=== PATIENT | male | born 1980 | race Caucasian/White ===

== ENCOUNTER 2017-06-10 11:34 | Emergency (ER) ==
[2017-06-10 11:40] VITALS: BP 127/85; TEMP 97.2; BMI 24.3
--- NOTE | 2017-06-10 11:54 | ED.PDOC ---
General ED Provider: Dr. MARY ELLEN GRAHAM JR Chief Complaint: Back Pain Stated Complaint: COMPLAINS OF BACK PAIN AND THINKS MAY BE A KIDNEY STONE[End] 97.2 89 16 98% 127/85 2/10 RIGHT SIDED FLANK PAIN[End]last episode April-not seen prior episode at [facility] [address] in [place], was told to stay hydrated Time Seen by Physician: 11:52 Mode of Arrival: Walk-In Information Source: Patient Exam Limitations: No limitations Nursing and Triage Documentation Reviewed and Agree: No Review of Systems - Review Of Systems Constitutional: Reports: No symptoms Eyes: Reports: No symptoms Ears, Nose, Mouth, Throat: Reports: No symptoms Respiratory: Reports: No symptoms Cardiac: Reports: No symptoms GI: Reports: No symptoms : Reports: Flank pain, Pain Musculoskeletal: Reports: No symptoms Skin: Reports: No symptoms Neurological: Reports: No symptoms Endocrine: Reports: No symptoms Hematologic/Lymphatic: Reports: No symptoms All Other Systems: Other Past Medical History - Past Medical History Previously Healthy: Yes Endocrine: Reports: None Cardiovascular: Reports: None Respiratory: Reports: None Hematological: Reports: None Gastrointestinal: Reports: None Genitourinary: Reports: Kidney stones (since 23 many stones no benefit nsaids has not sent stone for analysis has been carol to pass all stones) Neuro/Psych: Reports: Migraine Musculoskeletal: Reports: None Cancer: Reports: None - Surgical History General Surgical History: Reports: Other (wisdom teeth) - Family History Family History: Reports: None, Other (no known history kidney stones) - Social History Smoking Status: Former smoker Hx Substance Use: No Alcohol Screening: None - Immunizations Tetanus Shot up to Date: Yes Physical Exam - Physical Exam Appearance: Well-appearing, Thin Pain Distress: Mild Neck: Supple Respiratory: Airway patent Cardiovascular: RRR Musculoskeletal: Normal strength Skin: Warm Neurological: Sensation intact Psychiatric: Affect appropriate Critical Care Note - Critical Care Note Total Time (mins): 0 Course - Course Hematology/Chemistry: 06/10/17 11:59 06/10/17 11:59 Orders, Labs, Meds: Lab Review 06/10/17 06/10/17 11:45 11:59 WBC 13.65 H RBC 4.97 Hgb 16.5 Hct 46.2 MCV 93.0 MCH 33.2 H MCHC 35.7 H RDW Coeff of Jacky 11.9 Plt Count 239 Immature Gran % (Auto) 0.7 Neut % (Auto) 77.7 Lymph % (Auto) 13.7 [place] % (Auto) 3.7 Eos % (Auto) 3.8 Baso % (Auto) 0.4 Immature Gran # (Auto) 0.1 Neut # 10.6 H Lymph # 1.9 [place] # 0.5 Eos # 0.5 Baso # 0.1 Sodium 142 Potassium 4.1 Chloride 104 Carbon Dioxide 28 Anion Gap 14.1 BUN 16 Creatinine 0.93 Estimated GFR (MDRD) 91.00 BUN/Creatinine Ratio 17.20 Glucose 100 Calcium 9.5 Phosphorus 1.6 L Total Bilirubin 0.58 AST 24 ALT 43 Alkaline Phosphatase 112 Total Protein 7.6 Albumin 4.2 Globulin 3.4 Albumin/Globulin Ratio 1.24 Amylase 56 Lipase 30 Urine Color Dark Urine Clarity Turbid Urine pH 7.5 Ur Specific [place] 1.020 Urine Protein Trace Urine Glucose (UA) Negative Urine Ketones Negative Urine Blood 3+ Urine Nitrite Negative Urine Bilirubin Negative Urine Urobilinogen 1.0 Ur Leukocyte Esterase Negative Urine Microscopic RBC Tntc Urine Microscopic WBC 0-2 Ur Squamous Epith Cells 0-2 Orders Category Date Time Status ED IV/MEDIPORT/POWERPORT .ONCE EMERGENCY 06/10/17 11:48 Active Urine [ED STRAIN URINE] .ONCE EMERGENCY 06/10/17 11:58 Active AMYLASE Stat LAB 06/10/17 11:59 Completed CBC W/ AUTO DIFF Stat LAB 06/10/17 11:59 Completed COMPREHENSIVE METABOLIC PANEL Stat LAB 06/10/17 11:59 Completed LIPASE Stat LAB 06/10/17 11:59 Completed PHOSPHORUS Stat LAB 06/10/17 11:59 Completed URINALYSIS C & S IF INDICATED Stat LAB 06/10/17 11:45 Completed 0.9 % Sodium Chloride [Saline Flush] MEDS 06/10/17 11:48 Discontinued 1 syr IVF PRN PRN CT ABDOMEN/PELVIS WO CONTRAST Stat RADS 06/10/17 11:48 Completed Medications Discontinued Medications Generic Name Dose Route Start Last Admin Trade Name Freq PRN Reason Stop Dose Admin Sodium Chloride 1 syr 06/10/17 11:48 Saline Flush IVF PRN PRN To flush IV Vital Signs: Temp Pulse Resp BP Pulse Ox 06/10/17 11:36 97.2 F L 89 16 127/85 98 Departure - Departure Time of Disposition: 12:47 Disposition: HOME SELF-CARE Discharge Problem: Urolithiasis Instructions: Ureteral Stones (ED) Condition: Good Pt referred to PMD for follow-up: Yes Additional Instructions: Naproxen for pain and swelling [place] for pain not relieved Flomax for spasms recheck PMD one week and speak with PCP concerning a referral to a urologist return if pain not controlled or if fever over 101. and strain all urine Prescriptions: Hydrocodone Bit/Acetaminophen [[place] 5-325] 1 - 2 tab PO Q6HR PRN #12 tablet PRN Reason: pain Naproxen [Naprosyn] 500 mg PO Q12HR PRN #30 tablet PRN Reason: PAIN Tamsulosin HCl [Flomax] 0.4 mg PO DAILY #30 cap.er.24h Allergies/Adverse Reactions: Allergies No Known Allergies Allergy (Unverified 06/10/17 11:45) Home Medications: Ambulatory Orders Hydrocodone Bit/Acetaminophen [[place] 5-325] 1 - 2 tab PO Q6HR PRN #12 tablet 05/20 Naproxen [Naprosyn] 500 mg PO Q12HR PRN #30 tablet 06/10/17 Tamsulosin HCl [Flomax] 0.4 mg PO DAILY #30 cap.er.24h 06/10/17
[2017-06-10 12:07] LABS: BASOPHILS # (AUTO) 0.1 K/uL (0-0.2); BASOPHILS % (AUTO) 0.4 % (0.0-3.0); EOSINOPHILS # (AUTO) 0.5 K/ul (0.0-0.7); EOSINOPHILS % (AUTO) 3.8 % (0.0-7.0); HEMATOCRIT 46.2 % (42.0-52.0); HEMOGLOBIN 16.5 g/dl (14.0-18.0); IMMATURE GRANULOCYTE % (AUTO) 0.7 % (0.0-5.0); LYMPHOCYTES # (AUTO) 1.9 K/uL (0.60-3.4); LYMPHOCYTES % (AUTO) 13.7 (10.0-50.0); MEAN CORPUSCULAR HEMOGLOBIN 33.2 pg (27.0-31.0); MEAN CORPUSCULAR HGB CONC 35.7 (31.8-35.4); MONOCYTES # (AUTO) 0.5 K/uL (0.4-2.0); MONOCYTES % (AUTO) 3.7 (0-10); NEUTROPHILS # (AUTO) 10.6 K/ul (2.0-6.9); NEUTROPHILS % (AUTO) 77.7; PLATELET COUNT 239 10^3/uL (140-440); RED BLOOD COUNT 4.97 10^6/ul (4.70-6.10); WHITE BLOOD COUNT 13.65 K/ul (4.2-10.2)
[2017-06-10 12:09] LABS: BILIRUBIN,URINE Negative (NEGATIVE); KETONES,URINE Negative (NEGATIVE); LEUKOCYTE ESTERASE ,URINE Negative (NEGATIVE); NITRITE,URINE Negative (NEGATIVE); PH,URINE 7.5 (5-9); PROTEIN,URINE Trace (NEGATIVE); URINE, BLOOD 3+ (NEGATIVE)
[2017-06-10 12:16] LABS: ADD URINE MICROSCOPIC YES
[2017-06-10 12:29] LABS: ALBUMIN 4.2 g/dL (3.4-5.0); ALBUMIN/GLOBULIN RATIO 1.24; ANION GAP 14.1; BILIRUBIN,TOTAL 0.58 mg/dL (0.00-1.20); BUN/CREATININE RATIO 17.2; CALCIUM 9.5 mg/dL (8.2-10.2); CREATININE 0.93 mg/dL (0.60-1.10); PHOSPHORUS 1.6 mg/dL (2.5-4.9); POTASSIUM 4.1 mmol/L (3.5-5.1); TOTAL PROTEIN 7.6 g/dL (6.4-8.2)
--- NOTE | 2017-06-10 12:32 | CT ---
EXAM: CT ABDOMEN AND PELVIS HISTORY: Abdominal pain TECHNIQUE: CT abdomen and pelvis without intravenous contrast. Images were reconstructed using 3 m m section thickness. Reformations were prepared. COMPARISON: None FINDINGS: No focal hepatic or splenic lesions. Gallbladder, pancreas and left adrenal gland appear normal. T here is a round 1.7 cm right adrenal nodule with indeterminate attenuation values averaging 22 HU. Multiple small bilateral renal calculi largest intrarenal stone measures approximately 7 x 6 x 4 mm. There is mild right hydronephrosis secondary to a upper ureteral calculus which measures approxima tely 4.6 x 3.6 x 3.6 mm. This ureter calculus is located just below the ureteropelvic junction. Th e ureters are otherwise clear. Normal abdominal aorta. Unremarkable stomach and appendix. Normal bowel gas pattern. Urinary bladder and prostate appear n ormal. There is no ascites or inflammatory infiltration of the abdominal fat. No significant filling defect. Bones are within normal limits. Lung bases clear. IMPRESSION: 1. Bilateral nephrolithiasis. There is mild right hydronephrosis secondary to an upper ureteral ca lculus. 2. Right adrenal nodule, probably an adenoma although does not meet the criteria for definite diagn osis of this unenhanced CT. Further evaluation by follow-up adrenal protocol (MRI or CT) can be con sidered.
== END 2017-06-10 13:04 | disposition home or self-care (01) ==
LOC: ED 11:34
DX: N20.9 Urinary calculus, unspecified (principal); Z87.442 Personal history of urinary calculi
CPT/HCPCS: 36415; 80053; 81001; 82150; 83690; 84100; 85025; 99283

== ENCOUNTER 2017-06-11 14:18 | Emergency (ER) ==
[2017-06-11 14:21] VITALS: BP 136/80; TEMP 98.4; BMI 25.0
[2017-06-11] MEDS: MORPHINE 4 MG/ML SYRINGE IM STA (15:06)
--- NOTE | 2017-06-11 15:06 | ED.PDOC ---
General ED Provider: Dr. THEODORE REBOLLEDO Chief Complaint: Kidney Stone Stated Complaint: renal stone Time Seen by Physician: 14:30 (kidney stone and renal nodule seen 1 day prior by SANTOS PATEL) Mode of Arrival: Walk-In Information Source: Patient Exam Limitations: No limitations Primary Care Provider: KENNETH BRIGGS Nursing and Triage Documentation Reviewed and Agree: Yes (RETURNS FOR MORE PAIN ) Complaint Exam - Complaint/Exam Patient Complains of: Reports: Dysuria Onset/Duration: 1 DAY Symptoms Are: Still present Timing: Constant Initial Severity: Moderate Current Severity: Moderate Location of Pain: Reports: Right, Flank, Groin Character: Reports: Colicky Aggravating: Reports: None Alleviating: Reports: None Associated Signs and Symptoms: Reports: Dysuria. Denies: Diaphoresis, Back pain , Fever, Hematuria, Constipation, Blood in stool, Rectal pain, Appetite change, Nausea, Vomiting, Penile swelling, Penile discharge, Decreased urine output, Increased urine frequency, Increased thirst, Decreased activity, Lethargy, Scrotal pain, Scrotal swelling, Abdominal Pain Related History: Reports: Similar episode Testicular Torsion Risk Factors: Reports: None Surgical Obstruction Risk Factors: Reports: None Related Surgical History: Reports: None Abdominal Findings: Present: None Differential Diagnoses: Ureteral Calculi Review of Systems - Review Of Systems Constitutional: Reports: No symptoms Eyes: Reports: No symptoms Ears, Nose, Mouth, Throat: Reports: No symptoms Respiratory: Reports: No symptoms Cardiac: Reports: No symptoms GI: Reports: No symptoms : Reports: Dysuria, Flank pain Musculoskeletal: Reports: No symptoms Skin: Reports: No symptoms Neurological: Reports: No symptoms Endocrine: Reports: No symptoms Hematologic/Lymphatic: Reports: No symptoms All Other Systems: Reviewed and Negative Past Medical History - Past Medical History Previously Healthy: Yes Endocrine: Reports: None Cardiovascular: Reports: None Respiratory: Reports: None Hematological: Reports: None Gastrointestinal: Reports: None Genitourinary: Reports: Kidney stones (since 23 many stones no benefit nsaids has not sent stone for analysis has been carol to pass all stones) Neuro/Psych: Reports: Migraine Musculoskeletal: Reports: None Cancer: Reports: None - Surgical History General Surgical History: Reports: Other (wisdom teeth) - Family History Family History: Reports: None, Other (no known history kidney stones) - Social History Smoking Status: Former smoker Hx Substance Use: No Alcohol Screening: None Physical Exam - Physical Exam Appearance: Well-appearing, No pain distress, Well-nourished Eyes: ROBB, EOMI, Conjunctiva clear ENT: Ears normal, Nose normal, Oropharynx normal Respiratory: Airway patent, Breath sounds clear, Breath sounds equal, Respirations nonlabored Cardiovascular: RRR, Pulses normal, No rub, No murmur GI/: Soft, Nontender, No masses, Bowel sounds normal, No Organomegaly Musculoskeletal: Normal strength, ROM intact, No edema, No calf tenderness Skin: Warm, Dry, Normal color Neurological: Sensation intact, Motor intact, Reflexes intact, Cranial nerves intact, Alert, Oriented Psychiatric: Affect appropriate, Mood appropriate Interpretation - Radiology Interpretation Radiology Interpretation By: Radiologist (STONE BLEOW UVJ LARHEST STONE 7MM IN GREATEST DIMENSION) Physician Notification - Case Discussed Physician Notified: JOSE Time of Notification: 16:34 (disc provided nodule discussed with pt . doctor jose will see him on pain meds increased work noted provided ) Critical Care Note - Critical Care Note Total Time (mins): 0 Course - Course Orders, Labs, Meds: Orders Category Date Time Status Ketorolac Tromethamine [Toradol] MEDS 06/11/17 14:40 Discontinued 30 mg IM ONCE STA Morphine Sulfate [Morphine 4 mg/ml Syringe] MEDS 06/11/17 14:40 Discontinued 4 mg IM ONCE STA Ondansetron HCl/Pf [Zofran 4 mg/2 ml] MEDS 06/11/17 14:40 Discontinued 4 mg IM ONCE STA Medications Discontinued Medications Generic Name Dose Route Start Last Admin Trade Name Freq PRN Reason Stop Dose Admin Ketorolac Tromethamine 30 mg 06/11/17 14:40 06/11/17 15:07 Toradol IM 06/11/17 14:41 30 mg ONCE STA Administration Morphine Sulfate 4 mg 06/11/17 14:40 06/11/17 15:06 Morphine 4 Mg/Ml Syringe IM 06/11/17 14:41 4 mg ONCE STA Administration Ondansetron HCl 4 mg 06/11/17 14:40 06/11/17 15:07 Zofran 4 Mg/2 Ml IM 06/11/17 14:41 4 mg ONCE STA Administration Vital Signs: Temp Pulse Resp BP Pulse Ox 06/11/17 14:18 98.4 F 68 14 136/80 96 Departure - Departure Time of Disposition: 16:00 Disposition: HOME SELF-CARE Discharge Problem: Kidney stone Instructions: Renal Colic (ED), How to Strain Your Urine (ED), Flank Pain (ED) , Kidney Stones (ED) Condition: Good Pt referred to PMD for follow-up: Yes (UROLOGY) Additional Instructions: Please call your Family Physician as soon as possible to schedule a follow-up appointment. Allergies/Adverse Reactions: Allergies No Known Allergies Allergy (Verified 06/11/17 14:21) Home Medications: Ambulatory Orders Hydrocodone Bit/Acetaminophen [[place] 5-325] 1 - 2 tab PO Q6HR PRN #12 tablet 05/20 Naproxen [Naprosyn] 500 mg PO Q12HR PRN #30 tablet 06/10/17 Tamsulosin HCl [Flomax] 0.4 mg PO DAILY #30 cap.er.24h 06/10/17 Disposition Discussed With: Patient
[2017-06-11] MEDS: ZOFRAN 4 MG/2 ML IM STA (15:07)
[2017-06-11] MEDS: TORADOL IM STA (15:07)
== END 2017-06-11 17:07 | disposition home or self-care (01) ==
LOC: ED 14:18
DX: N20.0 Calculus of kidney (principal); Z87.442 Personal history of urinary calculi
CPT/HCPCS: 96372; 99283

== ENCOUNTER 2018-02-10 10:29 | Outpatient (CLI) | END 2018-02-10 10:30 | disposition home or self-care (01) | LOC: RHC-LAB 10:29 | PROVIDERS: ATTEND Emergency Medicine | DX: F33.1 Major depressive disorder, recurrent, moderate (principal) | CPT/HCPCS: 84443 ==

== ENCOUNTER 2018-02-14 13:54 | Outpatient (CLI) | payer OTHER | END 2018-02-14 13:55 | disposition home or self-care (01) | LOC: RHC-LAB 13:54 | PROVIDERS: ATTEND Emergency Medicine | DX: E05.90 Thyrotoxicosis, unspecified without thyrotoxic crisis or storm (principal); F33.1 Major depressive disorder, recurrent, moderate | CPT/HCPCS: 36415; 84439; 84480 ==